=== PATIENT | female | born 1970 | race Caucasian/White ===

== ENCOUNTER → 2016-12-27 | Outpatient (CLI) | payer OTHER | LOC: RAD 16:43 | DX: M25.561 Pain in right knee (principal); M79.671 Pain in right foot; M25.461 Effusion, right knee ==

== ENCOUNTER → 2017-01-05 | Outpatient (CLI) | payer OTHER | LOC: RAD 11:47 | DX: R10.2 Pelvic and perineal pain (principal); R10.9 Unspecified abdominal pain | CPT/HCPCS: Q9967 ==